=== PATIENT | male | born 1950 | race Caucasian/White ===

== ENCOUNTER 2016-12-04 17:40 | Emergency (ER) | payer OTHER ==
[~2016-12-04 17:40] MED LIST: ACETAMINOPHEN500 MG PO; ADULT ASPIRIN81 MG PO; ADVAIR 25028 BLISTE1 INH; ADVAIR 25028 BLISTER INH; ADVIL200 M1 PO; ADVIL200 MG; ALBUTEROL SULF8.5 GM IH; ALEVE220 M1 PO; ALEVE220 M4 PO; AMLODIPINE BESY10 MG PO; AMLODIPINE BESYL5 MG PO; ASPIR 8181 M1 PO; ASPIR 8181 MG; ASPIRIN81 MG PO; AUGMENTIN875 MG PO; BUDEPRION XL150 MG PO; BUPROPION HCL150 M; BUPROPION HCL150 M PO; BUPROPION XL150 M1 PO; CALCIUM CITRAT1 EA20 PO; CALCIUM CITRAT1 EAC7 PO; CALCIUM CITRATE1 TA PO; CIALIS20 MG PO; CILOXAN3.5 GM OP; CINNAMON; CINNAMON500 MG PO; CLONIDINE HCL0.1 M2 PO; CO Q-10100 M2 PO; CO Q-10100 MG; CO Q-10100 MG PO; CO Q10 50 MG PO; CVS OMEGA-3 KR1 EACH PO; CYCLOBENZAPRINE10 M1 PO; EQL FISH OIL 1,1 CA1 PO; FELODIPINE ER10 MG; FISH OIL + D31 EACH PO; FISH OIL 1,0001 CA PO; FISH OIL 1,0001 CAP PO; FLOMAX0.4 M1 PO; GABAPENTIN300 M1 PO; GLUCOPHAGE1000 M1 PO; GLUCOPHAGE1000 MG PO; GLUCOSAMINE H1500 M1 PO; GLUCOSAMINE H1500 MG PO; GLUCOSAMINE500 MG PO; HUMULIN N100 U/ML; HUMULIN N100 U/ML SQ; HUMULIN R U; HUMULIN R100 U/ML; HUMULIN R100 U/ML SQ; HUMULIN-R100 UNITS/ IM; HYDROCHLOROTH12.5 M3 PO; HYLAND LEG CRAMP PO; IBUPROFEN400 MG PO; KEFLEX500 M4 PO; LISINOPRIL40 M1 PO; LISINOPRIL40 MG; LISINOPRIL40 MG PO; LOTEMAX5 GM LEFT EYE; MAGNESIUM W/ZINC PO; MAGNESIUM250 M1 PO; MAGNESIUM400 M1 PO; MELATONIN3 M4 PO; METFORMIN HCL1000 MG PO; MOBIC7.5 M2 PO; MOTRIN IB200 MG PO; MUCINEX600 MG PO; MULTI VIT W/CAL1 TAB; MULTI-VITAMIN1 EAC1 PO; MULTIVITAMIN1 CAP PO; MULTIVITAMIN1 TAB PO; MULTIVITAMINS1 EAC6 PO; NIACIN TD500 MG; NIACIN TD500 MG PO; NICODERM14 MG/PAT1 TD; NORCO 5-325 TA1 EACH PO; NORCO 5/3251 TAB PO; NORVASC10 MG PO; NORVASC5 MG PO; NOVOLIN N100 U/ML SQ; NOVOLIN N100 UNIT/2 SQ; NOVOLIN R 100 UNIT SC; NOVOLIN R100 UNIT/1 SC; OMEPRAZOLE20 M3 PO; OMEPRAZOLE20 MG PO; OXYCODONE-ACET1 EAC3 PO; PRAVASTATIN SOD20 M1 PO; PROAIR HFA8.5 GM IH; REQUIP2 M1 PO; SIMVASTATIN80 MG PO; SLO-NIACIN500 MG PO; TRAMADOL HCL50 MG PO; TYLENOL PM EX-1 EAC1 PO; UNISOM50 M1 PO; VALACYCLOVIR500 MG PO; VALTREX500 M1 PO; VIGAMOX3 ML; VITAMIN D 22000 UNIT PO; VYTORIN 10/80 T1 TAB; WELLBUTRIN; ZANAFLEX4 M2 PO; ZESTRIL40 MG PO; ZOCOR80 MG PO; [UNRECOGNIZED DRUG - OTHER] PO
== END 2016-12-04 20:30 ==
LOC: EDMED 17:40
DX: Z04.1 Encounter for examination and observation following transport accident (principal); I10 Essential (primary) hypertension; E11.9 Type 2 diabetes mellitus without complications; Z79.4 Long term (current) use of insulin; Z79.899 Other long term (current) drug therapy; Z87.891 Personal history of nicotine dependence